=== PATIENT | female | born 1985 | race Caucasian/White ===

== ENCOUNTER 2022-08-10 19:11 | Emergency (ER) | payer OTHER ==
[2022-08-10] MEDS: Sodium Chloride 0.9% 1,000 ML IV SCH (19:47)
[2022-08-10] MEDS: HYDROmorphone 1 MG/ML Syringe IVPUSH ONE (19:51)
[2022-08-10] MEDS: Ondansetron 4 MG/2 ML SDV IVPUSH ONE (19:51)
[2022-08-10] MEDS: Sodium Chloride 0.9% 10 ML Syringe FLUSH PRN (19:54)
[2022-08-10 20:02] LABS: ESTIMATED GFR 116 mL/min (>60)
[2022-08-10] MEDS: Sodium Chloride 0.9% 75 ML IV SCH (20:40)
[2022-08-10] MEDS: Iopamidol 612 MG/ML 100 ML Bottle IV SCH (20:40)
[2022-08-10 22:15] VITALS: BP 114/68; PULSE 102
[2022-08-10] MEDS: Ketorolac 30 MG/ML SDV IVPUSH ONE (23:09)
== END 2022-08-10 23:39 | disposition home or self-care (01) ==
LOC: JP.ED 19:11
DX: N83.292 Other ovarian cyst, left side (principal); Z88.0 Allergy status to penicillin; Z88.2 Allergy status to sulfonamides; Z79.899 Other long term (current) drug therapy
CPT/HCPCS: 36415; 74177; 76830; 76856; 80053; 81001; 83605; 83690; 85025; 93976; 96361; 96374; 96375; 99284-25; J1170; J1885; J2405; J3490; J7030; Q9967

== ENCOUNTER 2025-01-29 07:53 | Day surgery (SDC) | payer OTHER ==
[2025-01-29] MEDS ORDERED: Ondansetron 4 MG/2 ML SDV ONE (08:08)
[2025-01-29] MEDS ORDERED: Glycopyrrolate 0.2 MG/ML 5 ML MDV ONE (08:08)
[2025-01-29] MEDS ORDERED: Dexamethasone 4 MG/ML SDV ONE (08:08)
[2025-01-29] MEDS ORDERED: Propofol 200 MG/20 ML SDV ONE (08:08)
[2025-01-29] MEDS ORDERED: Succinylcholine 200 MG/10 ML MDV ONE (08:08)
[2025-01-29] MEDS ORDERED: Rocuronium 50 MG/5 ML Vial ONE (08:08)
[2025-01-29] MEDS ORDERED: Neostigmine Methylsulfate 10 MG/10 ML MDV ONE (08:08)
[2025-01-29] MEDS ORDERED: fentaNYL 250 MCG/5 ML SDV ONE ×3 (08:09→10:45)
[2025-01-29 08:21] LABS: BASOPHILS ABSOLUTE AUTO 0.03 K/uL (0.00-0.10); BASOPHILS PERCENT AUTO 0.6 % (0.1-1.3); EOSINOPHILS ABSOLUTE AUTO 0.11 K/uL (0.00-0.40); EOSINOPHILS PERCENT AUTO 2.2 % (0.0-5.4); HEMATOCRIT 35.7 % (34.3-46.0); HEMOGLOBIN 11.4 g/dL (11.2-15.5); IMMATURE GRAN PERCENT AUTO 0.2 % (0.0-0.7); LYMPHOCYTES ABSOLUTE AUTO 1.05 K/uL (0.8-3.3); LYMPHOCYTES PERCENT AUTO 20.5 % (11.4-47.7); MEAN CORPUSCULAR HEMOGLOBIN 25.2 pg (31.6-35.5); MEAN CORPUSCULAR HGB CONC 31.9 g/dL (31.6-35.5); MEAN CORPUSCULAR VOLUME 78.8 fL (81.4-99.0); MONOCYTES ABSOLUTE AUTO 0.35 K/uL (0.20-0.90); MONOCYTES PERCENT AUTO 6.8 % (3.3-12.6); NEUTROPHILS ABSOLUTE AUTO 3.56 K/uL (1.0-7.6); NEUTROPHILS PERCENT AUTO 69.7 % (40.0-78.1); PLATELET COUNT,PLT 165 K/uL (130-375); RED BLOOD CELL COUNT 4.53 M/uL (3.77-5.24); WHITE BLOOD CELL COUNT,WBC 5.1 K/uL (3.2-11.0)
[2025-01-29 08:24] LABS: IMMATURE GRAN ABSOLUTE AUTO 0.01 K/uL (0.00-0.23)
[2025-01-29 08:41] LABS: A/G RATIO 1.1 (1.2-2.2); ALANINE AMINOTRANSFERASE,ALT 40 U/L (12-78); ALBUMIN 3.9 g/dL (3.4-5.0); ALKALINE PHOSPHATASE 79 U/L (46-116); ANION GAP 11.7 mmol/L (5.0-14.0); ASPARTATE AMNIOTRANSFERASE,AST 28 U/L (15-37); BILIRUBIN TOTAL 1.4 mg/dL (0.2-1.0); BLOOD UREA NITROGEN,BUN 7 mg/dL (7-18); CALCIUM 9.1 mg/dL (8.5-10.1); CARBON DIOXIDE,CO2 25 mmol/L (21-32); CHLORIDE,CL 104 mmol/L (100-108); CREATININE 0.7 mg/dL (0.6-1.0); EST CRCL DRUG DOSING (CG) 95.02 mL/min; ESTIMATED GFR 114 mL/min (>60); GLUCOSE RANDOM 98 mg/dL (74-106); POTASSIUM,K 3.8 mmol/L (3.6-5.2); PROTEIN TOTAL,TP 7.4 g/dL (6.4-8.2); SODIUM,NA 141 mmol/L (140-148)
[2025-01-29] MEDS: Scopalamine 1mg/3day Transdermal Patch TOP ONE (09:16)
[2025-01-29] MEDS: Lactated Ringers 1,000 ML IV SCH (09:18)
[2025-01-29] MEDS: ceFAZolin 2 GM in Premix Bag 1 BAG IV ONE (09:40)
[2025-01-29] MEDS: metroNIDAZOLE/Normal Saline 500 MG in Premix Bag 1 BAG IV ONE (10:10)
[2025-01-29] MEDS: Ropivacaine 50 ML, dexAMETHasone 8 MG, EPINEPHrine 0.4 MG, Sodium Chloride 0.9% 27.6 ML NERVRT SCH (10:30)
[2025-01-29] MEDS: Bupivacaine 0.5%/EPINEPHrine 1:200,000 50 ML MDV ONE (10:54)
[2025-01-29] MEDS ORDERED: VERIFY SCOP PATCH SCH (11:00)
[2025-01-29] MEDS ORDERED: Lactated Ringers 1,000 ML ONE (11:29)
[2025-01-29] MEDS ORDERED: Acetaminophen/HYDROcodone 325-5 MG Tab PO PRN (13:32)
[2025-01-29 14:47] VITALS: BP 98/68; PULSE 71
== END 2025-01-29 14:58 | disposition home or self-care (01) ==
LOC: JP.SDS 07:53
PROVIDERS: ATTEND Surgery
DX: K43.6 Other and unspecified ventral hernia with obstruction, without gangrene (principal); K43.0 Incisional hernia with obstruction, without gangrene; K21.9 Gastro-esophageal reflux disease without esophagitis; Z79.899 Other long term (current) drug therapy
CPT/HCPCS: 00840-QZ; 36415; 80053; 84703; 85025; A9270-GY; C1713; C1781; J0171; J0330; J0690; J1100; J1596; J1836; J2405; J2704; J2710; J2795; J3010; J3490; J7120